=== PATIENT | female | born 1980 | race Caucasian/White ===

== ENCOUNTER 2016-11-24 14:00 | Outpatient (CLI) | payer OTHER | END 2016-11-24 14:02 | LOC: NEPHRO 14:00 | PROVIDERS: ATTEND Internal Medicine Nephrology | DX: I10 Essential (primary) hypertension (principal); R10.11 Right upper quadrant pain | CPT/HCPCS: 99213 ==

== ENCOUNTER 2016-12-22 15:38 | Outpatient (CLI) | payer OTHER | END 2016-12-22 15:40 | LOC: NEPHRO 15:38 | PROVIDERS: ATTEND Internal Medicine Nephrology | DX: Q61.2 Polycystic kidney, adult type (principal); I10 Essential (primary) hypertension; E87.6 Hypokalemia | CPT/HCPCS: G0463 ==

== ENCOUNTER 2017-03-23 14:15 | Outpatient (CLI) | payer OTHER | END 2017-03-23 14:20 | LOC: NEPHRO 14:15 | PROVIDERS: ATTEND Internal Medicine Nephrology | DX: Q61.2 Polycystic kidney, adult type (principal); I10 Essential (primary) hypertension; E03.9 Hypothyroidism, unspecified | CPT/HCPCS: G0463 ==

== ENCOUNTER 2017-08-24 15:44 | Outpatient (CLI) | payer OTHER | END 2017-08-24 15:45 | LOC: NEPHRO 15:44 | PROVIDERS: ATTEND Internal Medicine Nephrology | DX: Q61.3 Polycystic kidney, unspecified (principal); I10 Essential (primary) hypertension | CPT/HCPCS: 99213 ==